=== PATIENT | male | born 1955 | race Caucasian/White ===

== ENCOUNTER 2022-08-08 09:00 | Outpatient (NON) | payer MEDICARE, SELFPAY | END 2022-08-08 09:01 | disposition home or self-care (01) | PROVIDERS: PCP Family Medicine; Visit Provider Nurse Practitioner | DX: D23.5 Other benign neoplasm of skin of trunk (principal) | CPT/HCPCS: 88305 ==

== ENCOUNTER 2022-09-20 12:02 | Outpatient (NON) | payer MEDICARE, SELFPAY | END 2022-09-20 12:03 | disposition home or self-care (01) | LOC: ANHLAB 09-21 12:04 | PROVIDERS: PCP Family Medicine; Visit Provider Nurse Practitioner | DX: I78.1 Nevus, non-neoplastic (principal) | CPT/HCPCS: 88305 ==